=== PATIENT | female | born 1970 | race Caucasian/White ===

== ENCOUNTER 2021-11-26 17:54 | Emergency (ER) | payer OTHER ==
[~2021-11-26 17:54] MED LIST: FLONASE ALLER15.8 ML; MULTIVITAMINS1 EAC1 PO; TRIAMCINOLONE 080 GM EXT; ZYRTEC10 M3 PO
[2021-11-26] MEDS ORDERED: BACTRIM DS TAB1 EACH PO (20:42)
[2021-11-26] MEDS ORDERED: NORCO 5-325 TA1 EACH PO (20:42)
[2021-11-26] MEDS ORDERED: CLEOCIN300 MG PO (20:42)
== END 2021-11-26 21:00 | disposition home or self-care (01) ==
LOC: FER 17:54
DX: S61.253A Open bite of left middle finger without damage to nail, initial encounter (principal); Z23 Encounter for immunization; Z88.0 Allergy status to penicillin; W54.0XXA Bitten by dog, initial encounter; Y92.009 Unspecified place in unspecified non-institutional (private) residence as the place of occurrence of the external cause
CPT/HCPCS: 73140; 90471; 90715

== ENCOUNTER 2021-12-01 05:21 | Emergency (ER) | payer OTHER ==
[~2021-12-01 05:21] MED LIST changes: +BACTRIM DS TAB1 EACH PO; +CLEOCIN300 MG PO; +NORCO 5-325 TA1 EACH PO
[2021-12-01] MEDS ORDERED: MIRALAX 238GM238 GM PO (06:40)
[2021-12-01] MEDS ORDERED: SENNA PLUS 8.61 EACH PO (06:40)
== END 2021-12-01 06:58 | disposition home or self-care (01) ==
LOC: FER 05:21
DX: K59.00 Constipation, unspecified (principal); Z88.0 Allergy status to penicillin
CPT/HCPCS: 99283